=== PATIENT | male | born 2000 | race Two or more races ===

== ENCOUNTER 2023-03-19 13:29 | Emergency (ER) | payer OTHER ==
[~2023-03-19] VITALS: Ht 182.9 cm; Wt 99.8 kg
== END 2023-03-19 16:38 | disposition home or self-care (01) ==
LOC: ER 13:29
DX: S61.012A Laceration without foreign body of left thumb without damage to nail, initial encounter (principal); W45.8XXA Other foreign body or object entering through skin, initial encounter; Y93.89 Activity, other specified; Y92.89 Other specified places as the place of occurrence of the external cause; Y99.9 Unspecified external cause status

== ENCOUNTER 2024-08-04 07:59 | Emergency (ER) | payer OTHER ==
[~2024-08-04] VITALS: Ht 182.9 cm; Wt 104.3 kg
[2024-08-04] MEDS ORDERED: FAMOTIDINE/PF 20 MG/2 ML VIAL IV PUSH STA (09:24)
[2024-08-04] MEDS ORDERED: FAMOTIDINE/PF 20 MG/2 ML VIAL ONE (09:28)
[2024-08-04 10:02] LABS: HEMATOCRIT 44.3 % (39.0-48.0); HEMOGLOBIN 15.1 g/dL (13-16.00); MEAN CELL VOLUME 90.9 fL (80.0-100.00); MEAN CORPUSCULAR HGB CONC 34.1 g/dl (32.0-36.0); PLATELET COUNT 218 K/uL (150-450); RED BLOOD COUNT 4.88 M/uL (4.00-6.00); RED CELL DISTRIBUTION WIDTH 13.9 % (11.5-14.5)
== END 2024-08-04 10:40 | disposition home or self-care (01) ==
LOC: ER 08:01
PROVIDERS: General Practice
DX: B34.9 Viral infection, unspecified (principal); Z20.822 Contact with and (suspected) exposure to COVID-19